=== PATIENT | female | born 1940 ===

== ENCOUNTER 2025-04-04 02:28 | Outpatient (CLI) | payer MEDICARE, SELFPAY ==
--- NOTE | 2025-04-04 14:14 | W.NUTRFU ---
Date of service: 04/04/25 Time of Service: 13:00 Nutrition Note NOTE: Shila comes in for referred nutrition visit for HTN. States she generally wants to lose a little weight and eat healthier. Tries to be active but states legs swell up the more active she is. She eats alone most meals and can easily have a bowl of ice cream for a meal if the mood/opportunity should strike. She takes MVI, B12, and D3 for nutrition supps. We discussed that her goal of eating healthier could also result in improvements to her weight and blood pressure. Discussed sodium goal of <2300mg and how to read labels for this and tips such as rinsing canned veggies/beans well to reduce sodium. Also reviewed common high sodium foods such as breads, crackers, and others. Reviewed importance of high fiber diet (increasing slowly for better tolerance) and limiting added sugar and fats to prevent excess kcals and the inflammation associated with higher sugar intakes. Shila relayed she has enough info and goals to get started with improving her food choices overall. She would like to follow up in about a month - scheduled for 05/02 at 1pm - she has my contact number should she have questions. Time Spent in Nutritional Counseling and Treatment: 25 min
== END 2025-04-04 02:29 | disposition home or self-care (01) ==
LOC: DS 02:29
PROVIDERS: Visit Provider Dietitian, Registered
DX: E66.9 Obesity, unspecified (principal)
CPT/HCPCS: 00123; 97802